=== PATIENT | male | born 1955 | race Two or more races ===

== ENCOUNTER 2017-10-08 09:46 | Inpatient (IN) | payer OTHER ==
[~2017-10-08] VITALS: Ht 175.3 cm; Wt 89.3 kg
[2017-10-08 10:34] LABS: Basophils # (auto) 0 uL; Basophils % (auto) 0.8 % (0.0-2.0); Eosinophils # (auto) 0.1 uL; Eosinophils % (auto) 1.4 % (0.0-7.0); Hematocrit 41.8 % (41.0-53.0); Hemoglobin 14.4 g/dL (13.5-17.5); Lymphocytes # (auto) 1.4 uL; Mean Corpuscular Hemoglobin 32.1 pg (28.0-32.0); Mean Corpuscular Hgb Conc. 34.5 g/dL (32.0-36.0); Mean Corpuscular Volume 92.9 fL (80.0-100.0); Monocytes # (auto) 0.7 uL; Monocytes % (auto) 12.2 % (0.0-12.0); Neutrophils # (auto) 3.5 uL; Neutrophils % (auto) 61.6 % (37.0-80.0); Nucleated Red Blood Cells % 0.1 %; Platelet Count (auto) 215 10^3/uL (140-450); White Blood Cell 5.6 10^3/uL (4.4-10.8)
[2017-10-08 10:55] LABS: Alanine Aminotransferase 40 U/L (16-61); Albumin 3.8 g/dL (3.4-5.0); Alkaline Phosphatase 83 U/L (45-117); Anion Gap 7 (5-15); Aspartate Aminotransferase 28 U/L (15-37); BUN/Creatinine Ratio 15.8; Bilirubin, Total 0.3 mg/dL (0.2-1.0); Blood Urea Nitrogen 15 mg/dL (7-18); Calcium 8.6 mg/dL (8.5-10.1); Carbon Dioxide 25 mmol/L (21-32); Chloride 107 mmol/L (98-107); GFR African American 104 mL/min; GFR Non-African American 86 mL/min; Glucose 95 mg/dL (74-106); Magnesium 2.6 mg/dL (1.6-2.6); Potassium 4.2 mmol/L (3.5-5.1); Sodium 139 mmol/L (136-145); Total Protein 7.5 g/dL (6.4-8.2)
[2017-10-08 11:06] LABS: Urine Bacteria NONE SEEN /hpf (None Seen); Urine Blood Negative /uL (Negative); Urine Specific Gravity 1.009 (1.001-1.035); Urine WBC 2 /hpf (0 - 3)
[2017-10-08] MEDS ORDERED: NITROGLYCERIN 0.4 MG SL TAB SL PRN (11:45)
[2017-10-08] MEDS ORDERED: MORPHINE SULFATE 4 MG/ML SYR/VIAL IV PRN (11:45)
[2017-10-08] MEDS ORDERED: ASPirin 81 mg TAB PO ONE (12:00)
[2017-10-08] MEDS ORDERED: LORazepam 2MG/ML-1ML VIAL IV PRN (19:45)
[2017-10-08 20:10] VITALS: BP 127/73
[2017-10-08 22:00] VITALS: BP 127/73
[2017-10-09] VITALS (7 sets, daily range): BP systolic 92–120; BP diastolic 55–64
[2017-10-09] MEDS: ASPirin 81 mg TAB PO SCH (10:24)
[2017-10-10 05:49] VITALS: BP 100/60
[2017-10-10 08:00] VITALS: BP 92/51
[2017-10-10 09:28] VITALS: BP 92/51
[2017-10-10] MEDS: ASPirin 81 mg TAB PO SCH (09:54)
[2017-10-10 12:30] VITALS: BP 112/75
[2017-10-10 16:50] VITALS: BP 105/55
[2017-10-10 21:38] VITALS: BP 100/55
[2017-10-11 05:29] VITALS: BP 109/57
[2017-10-11 08:00] VITALS: BP 101/66
[2017-10-11] MEDS: ASPirin 81 mg TAB PO SCH (10:29)
[2017-10-11 12:00] VITALS: BP 133/73
[2017-10-11 13:50] VITALS: BP 133/73
== END 2017-10-11 15:25 | DRG 312 ==
LOC: EDBD 09:46 → ER 09:46 → EEVIPCON 09:47 → TELE 09:47 → TELE-E-ADS 21:03
PROVIDERS: ADMIT Internal Medicine; ATTEND Internal Medicine
DX: R55 Syncope and collapse (principal); G45.9 Transient cerebral ischemic attack, unspecified; R32 Unspecified urinary incontinence
CPT/HCPCS: 36415; 70450; 70551; 80053; 81001; 83735; 84484; 85025; 93005; 93306; 93886; 95819